=== PATIENT | male | born 1960 | race Caucasian/White ===

== ENCOUNTER 2017-07-12 08:24 | Inpatient (IN) | payer MEDICARE, SELFPAY ==
[2017-07-12] VITALS (8 sets, daily range): BP systolic 103–136; BP diastolic 76–94; PULSE 73–88; RESP 14–20; TEMP 36.2–36.6; O2SAT 97–100; BMI 26.8; BMI 25.7
--- NOTE | 2017-07-12 08:34 | EKG12_ITS ---
Test Reason : Blood Pressure : / mmHG Vent. Rate : 072 BPM Atrial Rate : 072 BPM P-R Int : 138 ms QRS Dur : 072 ms QT Int : 418 ms P-R-T Axes : 032 079 092 degrees QTc Int : 457 ms Normal sinus rhythm Normal ECG Confirmed by HONEY MCKEON MD ([id number]), desk editor KEEGAN MAURICIO ([id number] on 07/15/2017 2:51:27 PM Referred By: CHERYL Confirmed By:HONEY MCKEON MD
--- NOTE | 2017-07-12 08:35 | CT_ITS ---
STUDY: CT ABDOMEN AND PELVIS WITH CONTRAST REASON FOR EXAM: Male, 56 years old. Abdominal pain. History of gastric mass. RADIATION DOSAGE (If Supplied By Facility): CTDIvol = ( 30.55 ) mGy, DLP = ( 1003.56 ) mGycm TECHNIQUE: Transaxial images were obtained from the dome of the diaphragm to the symphysis pubis without oral contrast. 100ML ml of Isovue 370 contrast was administered. Sagittal and coronal images were reconstructed. Individualized dose optimization techniques were used for this CT. COMPARISON: None. FINDINGS: The visualized lung bases are unremarkable. The visualized portions of the heart are within normal limits. Normal liver. The patient is status post cholecystectomy. Normal spleen. Normal pancreas. Normal bilateral adrenal glands. Small right renal cysts. Normal left kidney. There is distention of the stomach with oral contrast and residual food particles. There are dilated loops of the small intestine with a non-distended colon consistent with a small bowel obstruction. The transition point is in the distal ileum. An anastomotic suture line is seen in the region of the cecum. Sigmoid diverticulosis. There is diffuse atherosclerotic calcification of the abdominal aorta, without a demonstrated aneurysm. Normal inferior vena cava. Normal retroperitoneum. Normal urinary bladder. There is evidence of prior lateral inguinal hernias repair as well as ventral hernia repair. There are diffuse degenerative changes of the visualized lumbar spine. CT/CT ANGIO ABD&PEL W/O&W/DYE IMPRESSION: Findings in keeping with small bowel obstruction. The transition point is in the distal ileum. Prior bilateral inguinal hernias repair. Electronically Signed: Jordon Olsen MD at 10:33 EST Tel [phone], Service support ,
--- NOTE | 2017-07-12 08:36 | RAD_ITS ---
STUDY: X-RAY CHEST REASON FOR EXAM: Male, 56 years old. Abdominal pain with nausea and vomiting. TECHNIQUE: AP and lateral views of the chest. COMPARISON: None. FINDINGS: EKG electrodes are seen. The lungs are clear and expanded. There is no demonstrated pleural abnormality. Normal size heart. Normal mediastinum and chaka. Normal visualized pulmonary arteries. There is atherosclerotic tortuosity of the aortic arch and descending thoracic aorta. There is demineralization of the osseous structures. Prior right shoulder replacement. There is no demonstrated abnormality of the visualized soft tissue structures of the upper abdomen. RAD/Chest PA and Lateral IMPRESSION: No acute abnormality is seen. Electronically Signed: Jordon Olsen MD at 10:10 EST Tel [phone], Service support ,
--- NOTE | 2017-07-12 08:46 | ED.DCSUM_ITS ---
- ER Visit Summary Date of Service: 07/12/17 Chief Complaint: Abdominal pain History of Present Illness: The patient is a 56 M who presents for abdominal pain onset last night after eating. he is complaining of severe sharp epigastric pain that is been constant since eating pizza rolls last night. He had associated nausea and vomiting. Denies fever but did have night sweats. No chest pain, shortness of breath, congestion or acute cough, urinary symptoms other than chronic incontinence,. Pain is nonradiating. Patient denies current alcohol use but is a former drinker. Current tobacco use. Medical history of COPD, incontinence, and prostate surgery. Physical Examination: Vital signs: afebrile, hemodynamically stable, no hypoxia on room air General: well nourished, well developed, appears uncomfortable, fidgety Skin: warm, dry, no rash, no pallor HEENT: normocephalic and atraumatic; PERRL, EOMI, moist mucous membranes Cardiovascular: regular rate and rhythm without murmurs, no peripheral edema, 2 + pulses all distal extremities Respiratory: No increased work of breathing, lungs are diffuse wheezing Abdominal: Abdomen is soft, mildly distended, tender in the epigastrium, no rebound tenderness, no guarding, no pulsatile masses, no rigidity MSK: Moves all extremities, no deformities, normal strength Neuro: Awake and alert, oriented ?4. No facial droop, sensation and motor function intact and symmetric Test Results: Abnormal Lab Results 07/12/17 07/12/17 07/12/17 08:30 08:30 08:30 WBC 19.5 H RBC 4.90 Hgb 14.8 Hct 43.6 MCV 89.0 MCH 30.2 MCHC 33.9 RDW 14.7 H RDW Differential 47.2 H Plt Count 501 H MPV 9.0 Immature Gran % (Auto) 0.300 Neut % (Auto) 84.9 H Lymph % (Auto) 11.4 L [place] % (Auto) 3.2 Eos % (Auto) 0.1 Baso % (Auto) 0.1 Absolute Neuts (auto) 16.6 H Absolute Lymphs (auto) 2.22 Total Counted Not Reportable ESR Sodium 142 Potassium 3.3 L Chloride 113 H Carbon Dioxide 17.0 L Anion Gap 12 BUN 8 Creatinine 1.01 Estim Creat Clear Calc 93.39 Est GFR (MDRD) Af Amer 98 Est GFR (MDRD) Non-Af 81 BUN/Creatinine Ratio 7.9 L Glucose 160 H Hemoglobin A1c 5.9 Lactic Acid Calcium 7.0 L Phosphorus Magnesium Total Bilirubin 0.40 AST 15 ALT 19 Alkaline Phosphatase 81 Troponin I < 0.02 C-React Prot Ext Range Total Protein 6.2 L Albumin 2.6 L Globulin 3.6 Albumin/Globulin Ratio 0.7 L Lipase 159 Urine Color Urine Clarity Urine pH Ur Specific [place] Urine Protein Urine Glucose (UA) Urine Ketones Urine Occult Blood Urine Nitrite Urine Bilirubin Urine Urobilinogen Ur Leukocyte Esterase Urine RBC Urine WBC Ur Squamous Epith Cells Urine Bacteria Urine Mucus 07/12/17 07/12/17 07/12/17 08:30 08:30 08:40 WBC RBC Hgb Hct MCV MCH MCHC RDW RDW Differential Plt Count MPV Immature Gran % (Auto) Neut % (Auto) Lymph % (Auto) [place] % (Auto) Eos % (Auto) Baso % (Auto) Absolute Neuts (auto) Absolute Lymphs (auto) Total Counted ESR 14 Sodium Potassium Chloride Carbon Dioxide Anion Gap BUN Creatinine Estim Creat Clear Calc Est GFR (MDRD) Af Amer Est GFR (MDRD) Non-Af BUN/Creatinine Ratio Glucose Hemoglobin A1c Lactic Acid 5.1 H* Calcium Phosphorus 3.9 Magnesium 1.7 Total Bilirubin AST ALT Alkaline Phosphatase Troponin I C-React Prot Ext Range 5.19 H Total Protein Albumin Globulin Albumin/Globulin Ratio Lipase Urine Color Urine Clarity Urine pH Ur Specific [place] Urine Protein Urine Glucose (UA) Urine Ketones Urine Occult Blood Urine Nitrite Urine Bilirubin Urine Urobilinogen Ur Leukocyte Esterase Urine RBC Urine WBC Ur Squamous Epith Cells Urine Bacteria Urine Mucus 07/12/17 07/12/17 08:40 13:00 WBC RBC Hgb Hct MCV MCH MCHC RDW RDW Differential Plt Count MPV Immature Gran % (Auto) Neut % (Auto) Lymph % (Auto) [place] % (Auto) Eos % (Auto) Baso % (Auto) Absolute Neuts (auto) Absolute Lymphs (auto) Total Counted ESR Sodium Potassium Chloride Carbon Dioxide Anion Gap BUN Creatinine Estim Creat Clear Calc Est GFR (MDRD) Af Amer Est GFR (MDRD) Non-Af BUN/Creatinine Ratio Glucose Hemoglobin A1c Lactic Acid 2.4 H Calcium Phosphorus Magnesium Total Bilirubin AST ALT Alkaline Phosphatase Troponin I C-React Prot Ext Range Total Protein Albumin Globulin Albumin/Globulin Ratio Lipase Urine Color Yellow Urine Clarity Sl. Cloudy Urine pH 7.0 Ur Specific [place] 1.010 Urine Protein 15 H Urine Glucose (UA) 50 H Urine Ketones 50 H Urine Occult Blood 10 H Urine Nitrite Positive H Urine Bilirubin Negative Urine Urobilinogen 4 H Ur Leukocyte Esterase 100 H Urine RBC 0 SEEN Urine WBC 5-10 SEEN Ur Squamous Epith Cells 0-5 SEEN Urine Bacteria RARE Urine Mucus 2+ Emergency Department Course and Treatment: Patient was given IV fluids, morphine and Zofran for symptomatic treatment. Given the epigastric location of his complaint, chest and abdominal workup were performed. EKG showed sinus rhythm without ischemia or ectopy. Chest x-ray showed no free air under the diaphragm. No pneumonia. Labs were concerning for leukocytosis of 19.5. Normal lipase. Lactate elevated at 5.1. Troponin negative. Patient is afebrile, heart rate normal, respiratory rate normal, and does not meet SIRS criteria, however with the elevated lactate and leukocytosis this is concerning for possible infectious etiology. Was started on Zosyn empirically. CTA of the abdomen and pelvis was performed to look for abdominal pathology, including possible mesenteric ischemia given the patient's pain was out of proportion to the relatively benign examination. CT was consistent with small bowel obstruction. Patient was discussed with Dr. Jaimes will consult on patient but inks medical management is appropriate at this time. An NG tube was placed given that patient has been having vomiting and has a large amount of stomach contents noted on CT scan. Patient required additional morphine for pain. Patient was discussed with Dr. Morin admitted for medical management of small bowel obstruction. Treatment Plan: [] Disposition: [] Impression: Small bowel obstruction, lactic acidosis This note was generated with [employer] dictation software. It may contain incorrect words, spelling, and punctuation that were not noted in review of the chart prior to signing ED Disposition - Plan for ED Patient: Disposition: Acute Care Hospital [facility] Chief Complaint: Abd Pain
[2017-07-12 08:53] LABS: Red Blood Cells-Urine 0 SEEN /hpf (0-5)
[2017-07-12 08:56] LABS: Color, Urine Yellow (Yellow); Glucose, Dipstick 50 mg/dl (Normal); Ketone-Dipstick 50 mg/dl (Negative); Leukocyte Esterase-Dipstick 100 /ul (Negative); Nitrite-Dipstick Positive (Negative); Occult Blood-Urine 10 /ul (Negative); Protein-Dipstick 15 mg/dl (Negative); Urine Bilirubin Dipstick Negative (Negative); Urine Clarity Sl. Cloudy (Clear); Urine Urobilinogen 4 mg/dl (Normal)
[2017-07-12 08:57] LABS: Absolute Lymphocyte Count 2.22 X10^3/ul (0.83-4.51); Absolute Neutrophil Count 16.6 X10^3/uL (2.0-7.7); Basophil# 0.02 X10^3/uL; Basophil% 0.1 % (0-1); Eosinophil# 0.02 X10^3/uL; Eosinophils% 0.1 % (0-5); Hematocrit 43.6 % (40-54); Hemoglobin 14.8 g/dl (13.0-16.5); Lymphocyte # 2.22 X10^3/ul (4.0); Lymphocyte % 11.4 % (19-41); Mean Corp Hgb Conc 33.9 g/gl (32-36); Mean Corpuscular Hgb 30.2 pg (27.0-32.0); Monocyte# 0.63 X10^3/uL; Monocyte% 3.2 % (0-10); Neutrophil # 16.59 X10^3/uL (2.7-7.7); Neutrophil % 84.9 % (47-70); Platelet Count 501 K/mm3 (150-450); RBC Distribution Width CV 14.7 % (11.6-14.6); RBC Distribution Width SD 47.2 fl (35.1-43.9); White Blood Count 19.5 K/mm3 (4.4-11.0)
[2017-07-12] MEDS: Ondansetron 4 MG/2 ML Vial IV (08:57)
[2017-07-12] MEDS: 0.9% Normal Saline 1,000 ML 1000 ML IV (08:57)
[2017-07-12 08:59] LABS: POSITIVE COUNT NO; POSITIVE DIFFERENTIAL NO; POSITIVE MORPHOLOGY NO
[2017-07-12 09:02] LABS: Mucous, Urine 2+ /hpf (<or=2+); Squamous Epithelial Cells - UA 0-5 SEEN /hpf (0-5); White Blood Cells 5-10 SEEN /hpf (0-5)
[2017-07-12 09:03] LABS: Bacteria RARE /hpf (None Seen)
[2017-07-12 09:10] LABS: ALB/GLOB Ratio 0.7 RATIO (0.9-2.4); AST(SGOT) 15 U/L (15-37); Alanine Aminotransfer ALT/SGPT 19 U/L (16-61); Albumin, Serum 2.6 g/dL (3.2-5.0); Alkaline Phosphatase 81 U/L (45-117); Anion Gap 12 (5-15); BUN 8 mg/dL (7-18); BUN/Creat Ratio 7.9 RATIO (10-20); Chloride 113 mmol/L (98-107); Creatinine, Serum 1.01 mg/dL (0.70-1.30); EST Glomerular Filtration Rate 81 mL/min (>60); Est Glom Filt Rate - Afr Amer 98 mL/min (>60); Estimated Creatinine Clearance 93.39 ml/min; Globulin 3.6 g/dL (2.2-4.2); Glucose 160 mg/dL (74-106); Lipase 159 U/L (73-393); Potassium 3.3 mmol/L (3.5-5.1); Protein, Total 6.2 g/dL (6.4-8.2); Sodium Level 142 mmol/L (136-145)
[2017-07-12 09:22] LABS: Lactic Acid 5.1 mmol/L (0.4-2.0)
[2017-07-12] MEDS: 0.9% Normal Saline 1,000 ML 999 ML IV ×2 (10:07→14:35)
--- NOTE | 2017-07-12 10:17 | ED.RN ---
BLOOD CX X2 DRAWN BEFORE ATB INITIATED
--- NOTE | 2017-07-12 10:52 | RAD_ITS ---
STUDY: X-RAY - ABDOMEN/PELVIS REASON FOR EXAM: Male, 56 years old. Nasogastric tube placement. TECHNIQUE: AP supine and upright views of the abdomen and pelvis. COMPARISON: None. FINDINGS: Elevation of the right hemidiaphragm. The tip of the nasogastric tube is at the gastroesophageal junction. There are dilated loops of the small intestine with a non-distended colon consistent with a small bowel obstruction. There is no demonstrated free abdominal air. The visualized liver, spleen and kidneys are grossly normal in size and morphology. Normal soft tissue structures. Normal visualized osseous structures. RAD/Abdomen Single View (Portable) IMPRESSION: The tip of the nasogastric tube is at the level of the gastroesophageal junction. Electronically Signed: Jordon Olsen MD at 11:37 EST Tel [phone], Service support ,
--- NOTE | 2017-07-12 11:10 | RAD_ITS ---
STUDY: X-RAY CHEST REASON FOR EXAM: Male, 56 years old. Nausea and vomiting. Nasogastric tube placement. TECHNIQUE: Single AP portable view of the chest. COMPARISON: Comparison is made with prior examination done earlier in the day. FINDINGS: A nasogastric tube is seen. The tip is at the level of the gastroesophageal junction. The lungs are clear and expanded. There is no demonstrated pleural abnormality. Normal size heart. Normal mediastinum and chaka. Normal visualized pulmonary arteries. There is atherosclerotic tortuosity of the aortic arch and descending thoracic aorta. Normal visualized thoracic spine. Prior right shoulder replacement. There is no demonstrated abnormality of the visualized soft tissue structures of the upper abdomen. RAD/Chest 1 View (Portable) IMPRESSION: The tip of the nasogastric tube is at the level of the gastroesophageal junction. Electronically Signed: Jordon Olsen MD at 11:34 EST Tel [phone], Service support ,
--- NOTE | 2017-07-12 11:32 | RAD_ITS ---
STUDY: X-RAY - ABDOMEN/PELVIS REASON FOR EXAM: Male, 56 years old. Small bowel obstruction. Nasogastric tube placement. TECHNIQUE: Single AP view of the abdomen / pelvis. COMPARISON: Comparison is made with prior examination on earlier today. FINDINGS: The tip of the nasogastric tube is in the body of the stomach. RAD/Abdomen Single View (Portable) IMPRESSION: The tip of the nasogastric tube is in the body of the stomach. Electronically Signed: Jordon Olsen MD at 12:22 EST Tel [phone], Service support ,
[2017-07-12 12:52] LABS: Reflex Lactate? Y
--- NOTE | 2017-07-12 12:53 | NURSING ---
texted Dr. Morin to inform her that pt is here in 213 and there are no orders. No orders for NG to suction.
--- NOTE | 2017-07-12 13:12 | NURSING ---
Dr. Morin aware pt is here and will be up shortly.
--- NOTE | 2017-07-12 13:53 | PCM.HP.STD ---
Problem List (1) SBO (small bowel obstruction) Status: Acute (2) Depression Status: Chronic (3) Hx of malignant neoplasm of prostate Status: Chronic Comment: stage III diagnosed in 2014 and treated with Radiation and prostatectomy (4) Lactic acidosis Status: Acute (5) Hypokalemia Status: Acute (6) Hypocalcemia Status: Acute (7) HLD (hyperlipidemia) Status: Chronic (8) Tobacco dependence due to cigarettes Status: Chronic Comment: 1 and 1/2 PPD (9) GERD (gastroesophageal reflux disease) Status: Chronic (10) Inflammatory arthritis Status: Chronic Comment: takes MTX and it is managed by PCP (11) ischemic heart disease Status: Acute Comment: father with MO at 68 brother also has CVD History of Present Illness Date of Admission: 07/12/17 Chief Complaint: N/V/abdominal pain The patient is a 56 year old M with a hx of stage III prostatic CA, HLD, depression/anxiety, tobacco dependence, inflammatory arthritis treated by his PCP with methotrexate, GERD and asthma as a child who presented to the ER at [facility] on 07/12/17 c/o N/V/Abdominal pain and distension that started last night after eating pizza rolls. He has never had a problem with this food in the past. He has no sick contacts. He does have a hx of multiple abdominal/pelvic surgeries that include cholecystectomy, partial colon resection for a large mass which was benign in 2013, appendectomy, prostatectomy, 2 inguinal hernia repairs. He denies fever, chills, night sweats. Additionally has had surgery on both wrists and both shoulders. Vital signs at presentation to the emergency room are temperature 97.6, pulse rate 75, blood pressure 129/92, respiratory rate 18 and he was 100% saturated on room air. Remarkable lab included an elevated white blood cell count at 19.5 with 85% neutrophils. Platelet count was 501,000. Potassium was low at 3.3 and the serum bicarb was 17 with an anion gap of 12. Random blood glucose is elevated at 160 and the patient denies any history of diabetes mellitus. Calcium is 7.0 and the serum albumin is 2.6. LFTs were within normal limits. UA was positive for ketones and glucose. Were 5-10 white blood cells and 0-5 squamous epithelial cells in the urine with rare bacteria. Patient does have a chronic problem with urinary incontinence since prostatectomy and wears a depends. He is being admitted to the hospital with a diagnosis of small bowel obstruction. Dr. Jaimes has been notified of consult. NG tube has been placed and was verified with a KUB. The NG tube is now to low intermittent suction and immediately had 500 cc of green/bilious return. The Lactic acid is in excess of 5.1 but he only meets 1 SIRS criteria and he is afebrile with a normal HR and BP. He is alert and oriented X3 and does not appear Toxic. He is being admitted to a [facility] floor. Past Medical History Past Medical History (Chronic Problems): Chronic Problems Depression (Chronic) Hx of malignant neoplasm of prostate (Chronic) stage III diagnosed in 2013 and treated with Radiation and prostatectomy HLD (hyperlipidemia) (Chronic) Tobacco dependence due to cigarettes (Chronic) 1 and 1/2 PPD GERD (gastroesophageal reflux disease) (Chronic) Inflammatory arthritis (Chronic) takes MTX and it is managed by PCP Allergies acetaminophen [From Vicodin] Allergy (Verified 07/12/17 12:34) Vomiting hydrocodone [From Vicodin] Allergy (Verified 07/12/17 12:34) Vomiting Home Medications: Ambulatory Orders Medication Instructions Recorded Buspirone HCl 7.5 mg PO TID 07/12/17 Cholecalciferol (Vitamin D3) 5,000 unit PO DAILY 07/12/17 [Vitamin D3] Citalopram Hydrobromide 40 mg PO DAILY 07/12/17 [Citalopram HBr] Cyanocobalamin (Vitamin B-12) 2,500 mcg SL DAILY 07/12/17 [Vitamin B-12] Meloxicam [Mobic] 15 mg PO DAILY 07/12/17 Mirtazapine [Remeron] 45 mg PO QHS 07/12/17 Russell-3 Acid Ethyl Esters [Lovaza] 1 gm PO BID 07/12/17 Pantoprazole Sodium [Protonix] 40 mg PO DAILY 07/12/17 Pedi Multivit 158/Iron/Vit K1 1 each PO DAILY 07/12/17 [Cerovite Jr Tablet Chew] Potassium Chloride 10 meq PO BID 07/12/17 Surgical History: appendectomy, cholecystectomy, herniorrhaphy - 2 inguinal herniorrhaphys L inguingal, - - partial colon resection for a large benign mass, BL shoulder surgeries, prostatectomy Psychiatric History: Anxiety, Depression Lives: Spouse/ Significant Other Smoking Status: Current every day smoker Tobacco Use: Cigarettes - 1 and 1/2 PPD Alcohol: Occasional Drugs: None - *Family History Maternal History Items: Cancer - Mother at the age of 64 of lung cancer Paternal History Items: Heart Disease - Father at 68 with an myocardial infarction Sibling History Items: Heart Disease - He has a brother with heart disease. Review of Systems Constitutional: Denies: Chills, Fever, Night Sweats, Weakness HEENT: Denies: Head Aches, Sinus Congestion, Sinus Drainage Cardiovascular: Denies: Chest Pain, Palpitations Respiratory: Denies: Cough, Shortness of Breath, Shortness of breath at rest, Sputum production Gastrointestinal: Reports: Abdominal Pain - diffuse, Nausea, Vomiting. Denies: Diarrhea, Hematemesis Genitourinary: Reports: Incontinence - he has had this since prostatectomy and wears a depends. Denies: Dysuria Musculoskeletal: Denies: Joint Pain, Joint Tenderness Skin: Denies: Jaundice, Wounds Neurological: Denies: Numbness, Tingling, Focal weakness Psychiatric: Reports: Anxiety, Depression. Denies: Homicidal Ideations, Suicidal Ideations Endocrine: Denies: Change in Body Habitus Hematologic/ Lymphatic: Denies: Hx of blood clot VTE Information - Inpt Only VTE Present on Admission: No VTE Mechan Device Prophylaxis: Knee High HAKAN Hose VTE Pharm Prophylaxis ordered?: Yes Patient Problems: Active and Suspected Problems SBO (small bowel obstruction) (Acute) Lactic acidosis (Acute) Hypokalemia (Acute) Hypocalcemia (Acute) FH ischemic heart disease (Acute) father with MO at 68 brother also has CVD - Physical Exam General: Alert, Oriented x3, Cooperative, No apparent distress, Well developed, Well nourished HEENT: Atraumatic, PERRLA, EOMI Oral: Dry Mucosa Neck: Supple, No JVD, Negative Carotid Bruits, - - Carotid upstrokes are brisk with good pulse volume Lungs: Clear to auscultation, No rhonchi, No wheeze, No rales Cardiovascular: Regular rate, Regular Rhythm, Normal S1, Normal S2, No murmurs, No Ectopic Activity, No rub noted, No Gallop Abdomen: Soft, Non Tender - at present but has had morphine, Hypoactive Bowel Sounds, Distended - and tympanic Extremities: No clubbing, No cyanosis, No edema, No Calf Tenderness Skin: No rashes, No breakdown Musculoskeletal: Arthritic Changes Neurological: Cranial nerves II-XII grossly intact, Neuro grossly intact Psych/Mental Status: Normal Affect, Appropriate Vital Signs Temp Pulse Resp BP Pulse Ox 97.9 F 87 18 118/76 98 07/12/17 12:54 07/12/17 12:54 07/12/17 12:54 07/12/17 12:54 07/12/17 12:54 Oxygen Delivery Method Room Air Weight: 195 lb Body Mass Index (BMI) 25.7 Laboratory Tests Past 24 Hrs 07/12/17 13:00 Lactic Acid Pending Assessment/Plan Active and Suspected Problems SBO (small bowel obstruction) (Acute) Lactic acidosis (Acute) Hypokalemia (Acute) Hypocalcemia (Acute) FH ischemic heart disease (Acute) father with MO at 68 brother also has CVD impressions 1. SBO - suspect adhesions 2. lactic acidosis due to dehydration/N/V - only has 1/4 SIRS criteria and although his WBC count is increased no obvious infection a this point 3. hx of age 4 prostate cancer diagnosed in 2013 and treated with prostatectomy and external beam radiation 4. GERD 5. History of hypertension 6. Hyperlipidemia 7. History of partial colon resection for a large benign mass 8. Nicotine dependence 9. Hypokalemia 10. Hypocalcemia 11. urinary incontinence since prostatectomy Admitted to [facility] with a diagnosis of SBO. Continue the Zosyn for now Consult Dr. Jaimes Maintain the NG to low intermittent suction, encouraged ambulation Supplement the potassium and the calcium Check BMP, mag and phos at 1700 Recheck the lab in the AM Hakan bonilla and Sonal for DVT prophylaxis Blood and urine cultures pending Code Visit Inpatient E&M: 91684 Init Hosp L2
[2017-07-12 13:55] LABS: Lactic Acid 2.4 mmol/L (0.4-2.0)
[2017-07-12] MEDS: 0.9% NaCl Peripheral Flush Adult/Peds IV (14:19)
[2017-07-12 14:35] LABS: Erythrocyte Sedimentation Rate 14 mm/hr (0-20)
--- NOTE | 2017-07-12 14:40 | PCM.CONS.GEN ---
Reason for Consult Date of Consultation: 07/12/17 History of Present Illness: The patient is a 56 year old M who presents with a one-day history of abdominal distention, nausea and vomiting. The patient was in usual state of health when yesterday noted significant abdominal distention. He had upper abdominal pain followed by nausea and vomiting. He presented to [facility] emergency department. He was found to have an elevated white blood cell count of 19,000. His initial elevated lactic acid level of 5.2. CT scan of the abdomen and pelvis demonstrated a distal high-grade small bowel obstruction with what appears to be a transition point in the low right pelvis. The patient actually is feeling better after IV fluid bolus and nasogastric tube insertion area. Patient has a history of prostate cancer, underwent a radical retropubic robotic prostatectomy and [facility] is also note of an umbilical hernia repair in September 2015. Past Medical History Past Medical History (Chronic Problems): Chronic Problems Depression (Chronic) Hx of malignant neoplasm of prostate (Chronic) stage III diagnosed in 2013 and treated with Radiation and prostatectomy HLD (hyperlipidemia) (Chronic) Tobacco dependence due to cigarettes (Chronic) 1 and 1/2 PPD GERD (gastroesophageal reflux disease) (Chronic) Inflammatory arthritis (Chronic) takes MTX and it is managed by PCP Allergies acetaminophen [From Vicodin] Allergy (Verified 07/12/17 12:34) Vomiting hydrocodone [From Vicodin] Allergy (Verified 07/12/17 12:34) Vomiting Home Medications: Ambulatory Orders Medication Instructions Recorded Buspirone HCl 7.5 mg PO TID 07/12/17 Cholecalciferol (Vitamin D3) 5,000 unit PO DAILY 07/12/17 [Vitamin D3] Citalopram Hydrobromide 40 mg PO DAILY 07/12/17 [Citalopram HBr] Cyanocobalamin (Vitamin B-12) 2,500 mcg SL DAILY 07/12/17 [Vitamin B-12] Meloxicam [Mobic] 15 mg PO DAILY 07/12/17 Mirtazapine [Remeron] 45 mg PO QHS 07/12/17 [place]-3 Acid Ethyl Esters [Lovaza] 1 gm PO BID 07/12/17 Pantoprazole Sodium [Protonix] 40 mg PO DAILY 07/12/17 Pedi Multivit 158/Iron/Vit K1 1 each PO DAILY 07/12/17 [Cerovite Jr Tablet Chew] Potassium Chloride 10 meq PO BID 07/12/17 Surgical History: appendectomy, cholecystectomy, - - 02/17/14 underwent robotic retropubic radical prostatectomy with pelvic lymph node dissection - [facility] Smoking Status: Current every day smoker - *Family History Maternal History Items: Cancer - Mother at the age of 64 of lung cancer Paternal History Items: Heart Disease - Father at 68 with an myocardial infarction Sibling History Items: Heart Disease - He has a brother with heart disease. Review of Systems Constitutional: Reports: Malaise HEENT: Denies: Head Aches, Sinus Congestion, Sinus Drainage Cardiovascular: Denies: Chest Pain, Palpitations Respiratory: Denies: Cough, Shortness of breath at rest, Sputum production Gastrointestinal: Reports: Abdominal Pain, Nausea, Vomiting Genitourinary: Denies: Dysuria Musculoskeletal: Reports: Arm Pain, Hand Pain, Joint stiffness. Denies: Joint Pain, Joint Tenderness Skin: Denies: Rash, Wounds Neurological: Denies: Numbness, Tingling, Focal weakness Psychiatric: Denies: Anxiety, Depression, Homicidal Ideations, Suicidal Ideations Hematologic/ Lymphatic: Denies: Easy Bruising, Easy Bleeding Patient Problems: Active and Suspected Problems SBO (small bowel obstruction) (Acute) Lactic acidosis (Acute) Hypokalemia (Acute) Hypocalcemia (Acute) FH ischemic heart disease (Acute) father with [place] at 68 brother also has CVD - Physical Exam General: Alert, Oriented x3, Cooperative Lungs: Normal air movement, Wheezes Cardiovascular: Regular rate, Regular Rhythm Abdomen: Bowel Sounds Present, Soft, Non Tender, Distended - mildly distended-no palpable hernias Vital Signs Temp Pulse Resp BP Pulse Ox 97.9 F 87 18 118/76 98 07/12/17 12:54 07/12/17 12:54 07/12/17 12:54 07/12/17 12:54 07/12/17 13:47 Oxygen Delivery Method Room Air Weight: 88.451 kg Body Mass Index (BMI) 25.7 Intake and Output for Last 24 Hours 07/10/17 07/11/17 07/12/17 23:59 23:59 23:59 Intake Total Balance Laboratory Tests Past 24 Hrs 07/12/17 13:00 Lactic Acid 2.4 H Assessment/Plan Active and Suspected Problems SBO (small bowel obstruction) (Acute) Lactic acidosis (Acute) Hypokalemia (Acute) Hypocalcemia (Acute) FH ischemic heart disease (Acute) father with [place] at 68 brother also has CVD small bowel obstruction, history of radical prostatectomy in [address] scan demonstrates a transition point with what appears to eventual matter in the lower right pelvis. There are no obvious hernias noted in the pelvic area. There is a question of a recurrent hernia just left of midline at the umbilicus, but there is no signs of transition or bowel incarceration that location. Clinically, the patient is doing well after hydration and NG tube placement. Repeat lactic acid level has improved significantly. Discussed with the patient that with nasogastric decompression, bowel rest and IV hydration. Approximately 60 -70% of bowel obstructions resolve. We will plan to follow the patient clinically and with serial abdominal series KUB demonstrates the tip of the NG tube to be in the stomach but the most proximal opening was still in the esophagitis. I asked the nurse to advance the NG tube proximally 5 cm did not feel another x-ray to be obtained right away. We will plan for obstructive series in the morning.
[2017-07-12 14:41] LABS: CRP 5.19 mg/L (0.0-3.0); Magnesium 1.7 mg/dL (1.6-2.6); Phosphorus 3.9 mg/dL (2.5-4.9)
--- NOTE | 2017-07-12 14:45 | CON.PCM_ITS ---
Reason for Consult Date of Consultation: 07/12/17 History of Present Illness: The patient is a 56 year old M who presents with a one-day history of abdominal distention, nausea and vomiting. The patient was in usual state of health when yesterday noted significant abdominal distention. He had upper abdominal pain followed by nausea and vomiting. He presented to [facility] emergency department. He was found to have an elevated white blood cell count of 19,000. His initial elevated lactic acid level of 5.2. CT scan of the abdomen and pelvis demonstrated a distal high-grade small bowel obstruction with what appears to be a transition point in the low right pelvis. The patient actually is feeling better after IV fluid bolus and nasogastric tube insertion area. Patient has a history of prostate cancer, underwent a radical retropubic robotic prostatectomy and [facility] is also note of an umbilical hernia repair in September 2015. Past Medical History Past Medical History (Chronic Problems): Chronic Problems Depression (Chronic) Hx of malignant neoplasm of prostate (Chronic) stage III diagnosed in 2013 and treated with Radiation and prostatectomy HLD (hyperlipidemia) (Chronic) Tobacco dependence due to cigarettes (Chronic) 1 and 1/2 PPD GERD (gastroesophageal reflux disease) (Chronic) Inflammatory arthritis (Chronic) takes MTX and it is managed by PCP Allergies acetaminophen [From Vicodin] Allergy (Verified 07/12/17 12:34) Vomiting hydrocodone [From Vicodin] Allergy (Verified 07/12/17 12:34) Vomiting Home Medications: Ambulatory Orders Medication Instructions Recorded Buspirone HCl 7.5 mg PO TID 07/12/17 Cholecalciferol (Vitamin D3) 5,000 unit PO DAILY 07/12/17 [Vitamin D3] Citalopram Hydrobromide 40 mg PO DAILY 07/12/17 [Citalopram HBr] Cyanocobalamin (Vitamin B-12) 2,500 mcg SL DAILY 07/12/17 [Vitamin B-12] Meloxicam [Mobic] 15 mg PO DAILY 07/12/17 Mirtazapine [Remeron] 45 mg PO QHS 07/12/17 [place]-3 Acid Ethyl Esters [Lovaza] 1 gm PO BID 07/12/17 Pantoprazole Sodium [Protonix] 40 mg PO DAILY 07/12/17 Pedi Multivit 158/Iron/Vit K1 1 each PO DAILY 07/12/17 [Cerovite Jr Tablet Chew] Potassium Chloride 10 meq PO BID 07/12/17 Surgical History: appendectomy, cholecystectomy, - - 02/17/14 underwent robotic retropubic radical prostatectomy with pelvic lymph node dissection - [facility] Smoking Status: Current every day smoker - *Family History Maternal History Items: Cancer - Mother at the age of 64 of lung cancer Paternal History Items: Heart Disease - Father at 68 with an myocardial infarction Sibling History Items: Heart Disease - He has a brother with heart disease. Review of Systems Constitutional: Reports: Malaise HEENT: Denies: Head Aches, Sinus Congestion, Sinus Drainage Cardiovascular: Denies: Chest Pain, Palpitations Respiratory: Denies: Cough, Shortness of breath at rest, Sputum production Gastrointestinal: Reports: Abdominal Pain, Nausea, Vomiting Genitourinary: Denies: Dysuria Musculoskeletal: Reports: Arm Pain, Hand Pain, Joint stiffness. Denies: Joint Pain, Joint Tenderness Skin: Denies: Rash, Wounds Neurological: Denies: Numbness, Tingling, Focal weakness Psychiatric: Denies: Anxiety, Depression, Homicidal Ideations, Suicidal Ideations Hematologic/ Lymphatic: Denies: Easy Bruising, Easy Bleeding Patient Problems: Active and Suspected Problems SBO (small bowel obstruction) (Acute) Lactic acidosis (Acute) Hypokalemia (Acute) Hypocalcemia (Acute) FH ischemic heart disease (Acute) father with [place] at 68 brother also has CVD - Physical Exam General: Alert, Oriented x3, Cooperative Lungs: Normal air movement, Wheezes Cardiovascular: Regular rate, Regular Rhythm Abdomen: Bowel Sounds Present, Soft, Non Tender, Distended - mildly distended- no palpable hernias Vital Signs Temp Pulse Resp BP Pulse Ox 97.9 F 87 18 118/76 98 07/12/17 12:54 07/12/17 12:54 07/12/17 12:54 07/12/17 12:54 07/12/17 13:47 Oxygen Delivery Method Room Air Weight: 88.451 kg Body Mass Index (BMI) 25.7 Intake and Output for Last 24 Hours 07/10/17 07/11/17 07/12/17 23:59 23:59 23:59 Intake Total Balance Laboratory Tests Past 24 Hrs 07/12/17 13:00 Lactic Acid 2.4 H Assessment/Plan Active and Suspected Problems SBO (small bowel obstruction) (Acute) Lactic acidosis (Acute) Hypokalemia (Acute) Hypocalcemia (Acute) FH ischemic heart disease (Acute) father with [place] at 68 brother also has CVD small bowel obstruction, history of radical prostatectomy in [address] scan demonstrates a transition point with what appears to eventual matter in the lower right pelvis. There are no obvious hernias noted in the pelvic area. There is a question of a recurrent hernia just left of midline at the umbilicus, but there is no signs of transition or bowel incarceration that location. Clinically, the patient is doing well after hydration and NG tube placement. Repeat lactic acid level has improved significantly. Discussed with the patient that with nasogastric decompression, bowel rest and IV hydration. Approximately 60 -70% of bowel obstructions resolve. We will plan to follow the patient clinically and with serial abdominal series KUB demonstrates the tip of the NG tube to be in the stomach but the most proximal opening was still in the esophagitis. I asked the nurse to advance the NG tube proximally 5 cm did not feel another x-ray to be obtained right away. We will plan for obstructive series in the morning.
[2017-07-12 15:11] LABS: Hemoglobin A1c 5.9 % (4.2-6.3)
--- NOTE | 2017-07-12 15:18 | NURSING ---
DR. LA CALLED, SPOKE WITH THIS NURSE. ORDERS TO ADVANCE NG TUBE 5CM AND NO NEED TO FOLLOW UP WITH XRAY AFTERWARDS PER POLICY PER DR. LA.
[2017-07-12 17:58] LABS: Lactic Acid 1.5 mmol/L (0.4-2.0)
[2017-07-12 18:16] LABS: Anion Gap 6 (5-15); BUN 8 mg/dL (7-18); BUN/Creat Ratio 7.6 RATIO (10-20); Chloride 109 mmol/L (98-107); Creatinine, Serum 1.05 mg/dL (0.70-1.30); EST Glomerular Filtration Rate 78 mL/min (>60); Est Glom Filt Rate - Afr Amer 94 mL/min (>60); Estimated Creatinine Clearance 89.83 ml/min; Glucose 91 mg/dL (74-106); Magnesium 1.7 mg/dL (1.6-2.6); Potassium 4.2 mmol/L (3.5-5.1); Sodium Level 140 mmol/L (136-145)
[2017-07-12] MEDS: Piperacil/Tazobactam 3.375 GM/50 ML ML IV (23:32)
[2017-07-13 02:00] VITALS: O2SAT 95
[2017-07-13 02:30] VITALS: BP 131/74; PULSE 68; RESP 18; TEMP 36.6; O2SAT 95
--- NOTE | 2017-07-13 06:00 | RAD_ITS ---
STUDY: X-RAY - ABDOMEN/PELVIS REASON FOR EXAM: Male, 56 years old. Small bowel obstruction TECHNIQUE: AP supine and upright views of the abdomen and pelvis. COMPARISON: 07/12/2017. FINDINGS: Normal visualized lung bases. There are dilated loops of the small intestine with a non-distended colon consistent with a small bowel obstruction. There is no demonstrated free abdominal air. NG tube tip is in the stomach. The visualized liver, spleen and kidneys are grossly normal in size and morphology. Normal soft tissue structures. Normal visualized osseous structures. RAD/Abd Inc Decub and/or Erect IMPRESSION: Small bowel obstruction. No free air. NG tube tip in the stomach. Electronically Signed: Andrew العراقي DO at 6:42 EST , Service support ,
[2017-07-13] MEDS: 0.9% NaCl Peripheral Flush Adult/Peds IV ×3 (06:18→19:56)
[2017-07-13] MEDS: Piperacil/Tazobactam 3.375 GM/50 ML ML IV ×3 (06:19→21:37)
[2017-07-13 07:09] LABS: Absolute Lymphocyte Count 2.01 X10^3/ul (0.83-4.51); Absolute Neutrophil Count 6.2 X10^3/uL (2.0-7.7); Basophil# 0.02 X10^3/uL; Basophil% 0.2 % (0-1); Eosinophil# 0.26 X10^3/uL; Eosinophils% 2.9 % (0-5); Hematocrit 38.9 % (40-54); Hemoglobin 12.7 g/dl (13.0-16.5); Lymphocyte # 2.01 X10^3/ul (4.0); Lymphocyte % 22.1 % (19-41); Mean Corp Hgb Conc 32.6 g/gl (32-36); Mean Corpuscular Hgb 29.5 pg (27.0-32.0); Mean Corpuscular Volume 90.5 fL (80-94); Mean Platelet Vol. 8.8 fl (6.2-12.0); Monocyte# 0.61 X10^3/uL; Monocyte% 6.7 % (0-10); Neutrophil # 6.19 X10^3/uL (2.7-7.7); Neutrophil % 67.9 % (47-70); Platelet Count 387 K/mm3 (150-450); RBC Distribution Width CV 15.2 % (11.6-14.6); RBC Distribution Width SD 49.8 fl (35.1-43.9); White Blood Count 9.1 K/mm3 (4.4-11.0)
[2017-07-13 07:11] LABS: POSITIVE COUNT NO; POSITIVE DIFFERENTIAL NO; POSITIVE MORPHOLOGY NO
[2017-07-13 07:30] LABS: Anion Gap 8 (5-15); BUN 8 mg/dL (7-18); BUN/Creat Ratio 8.2 RATIO (10-20); Calcium,Total 8.1 mg/dL (8.5-10.1); Chloride 104 mmol/L (98-107); Creatinine, Serum 0.98 mg/dL (0.70-1.30); EST Glomerular Filtration Rate 85 mL/min (>60); Est Glom Filt Rate - Afr Amer 102 mL/min (>60); Estimated Creatinine Clearance 96.25 ml/min; Glucose 102 mg/dL (74-106); Lactic Acid 1.3 mmol/L (0.4-2.0); Magnesium 1.6 mg/dL (1.6-2.6); Potassium 3.8 mmol/L (3.5-5.1); Sodium Level 138 mmol/L (136-145)
[2017-07-13 08:04] VITALS: BP 114/86; PULSE 71; RESP 16; TEMP 36.8; O2SAT 94
--- NOTE | 2017-07-13 08:47 | PCM.PN.SRG ---
Patient Problems: Active and Suspected Problems SBO (small bowel obstruction) (Acute) Lactic acidosis (Acute) Hypokalemia (Acute) Hypocalcemia (Acute) FH ischemic heart disease (Acute) father with [place] at 68 brother also has CVD Subjective: feeling better, no flatus - Physical Exam General: Alert, Oriented x3 Lungs: Clear to auscultation, Normal air movement Cardiovascular: Regular rate, Regular Rhythm Abdomen: Bowel Sounds Present, Soft, Non Tender, Distended Vital Signs Temp Pulse Resp BP Pulse Ox 98.2 F 71 16 114/86 H 94 07/13/17 08:04 07/13/17 08:04 07/13/17 08:04 07/13/17 08:04 07/13/17 08:04 Oxygen Delivery Method Room Air Weight: 88.451 kg Body Mass Index (BMI) 25.7 Intake and Output for Last 24 Hours 07/11/17 07/12/17 07/13/17 23:59 23:59 23:59 Intake Total 1592 / 1592 1906 / 1906 Output Total 700 / 700 1250 / 1250 Balance 892 / 892 656 / 656 Laboratory Tests Past 24 Hrs 07/12/17 07/12/17 07/12/17 13:00 17:26 17:26 WBC RBC Hgb Hct MCV MCH MCHC RDW RDW Differential Plt Count MPV Immature Gran % (Auto) Neut % (Auto) Lymph % (Auto) [place] % (Auto) Eos % (Auto) Baso % (Auto) Absolute Neuts (auto) Absolute Lymphs (auto) Total Counted Sodium 140 Potassium 4.2 Chloride 109 H Carbon Dioxide 25.0 Anion Gap 6 BUN 8 Creatinine 1.05 Estim Creat Clear Calc 89.83 Est GFR (MDRD) Af Amer 94 Est GFR (MDRD) Non-Af 78 BUN/Creatinine Ratio 7.6 L Glucose 91 Lactic Acid 2.4 H 1.5 Calcium 8.0 L Phosphorus 4.0 Magnesium 1.7 07/13/17 07/13/17 07/13/17 06:50 06:50 06:50 WBC 9.1 RBC 4.30 L Hgb 12.7 L Hct 38.9 L MCV 90.5 MCH 29.5 MCHC 32.6 RDW 15.2 H RDW Differential 49.8 H Plt Count 387 MPV 8.8 Immature Gran % (Auto) 0.200 Neut % (Auto) 67.9 Lymph % (Auto) 22.1 [place] % (Auto) 6.7 Eos % (Auto) 2.9 Baso % (Auto) 0.2 Absolute Neuts (auto) 6.2 Absolute Lymphs (auto) 2.01 Total Counted Not Reportable Sodium 138 Potassium 3.8 Chloride 104 Carbon Dioxide 26.0 Anion Gap 8 BUN 8 Creatinine 0.98 Estim Creat Clear Calc 96.25 Est GFR (MDRD) Af Amer 102 Est GFR (MDRD) Non-Af 85 BUN/Creatinine Ratio 8.2 L Glucose 102 Lactic Acid 1.3 Calcium 8.1 L Phosphorus 3.0 Magnesium 1.6 Assessment/Plan Active and Suspected Problems SBO (small bowel obstruction) (Acute) Lactic acidosis (Acute) Hypokalemia (Acute) Hypocalcemia (Acute) FH ischemic heart disease (Acute) father with [place] at 68 brother also has CVD small bowel obstruction, history of radical prostatectomy in 2014, umbilical hernia repair with mesh in 2016. will tr4y to obtain old OR records to assess mesh size Review the CT scan demonstrates a transition point in the lower right pelvis. There are no obvious hernias noted in the pelvic area. There is a question of a recurrent hernia just left of midline at the umbilicus, but there is no signs of transition or bowel incarceration that location and it may be post surgical changes. abdominal multiview demonstrated continued SBO Clinically, the patient is doing well after hydration and NG tube placement. Repeat lactic acid and WBC count normal. Discussed with the patient that with nasogastric decompression, bowel rest and IV hydration. Approximately 60 -70% of bowel obstructions resolve. We will plan to follow the patient clinically and with serial abdominal series KUB demonstrates the tip of the NG tube in stomach.
--- NOTE | 2017-07-13 09:27 | PN_ITS ---
Patient Problems: Active and Suspected Problems SBO (small bowel obstruction) (Acute) Lactic acidosis (Acute) Hypokalemia (Acute) Hypocalcemia (Acute) FH ischemic heart disease (Acute) father with [facility] at 68 brother also has CVD Subjective: The patient abdominal distention is better. No abdominal pain. Had multiple abdominal surgeries including 2 times umbilical hernia surgery, last one with mesh repair in 2016. Patient also had robotic assisted radical prostatectomy 2013 for prostate cancer with bilateral inguinal lymphadenectomy. Discussed with Dr. Wheat and will try to get the medical record of previous surgery. CT and abdominal x-ray images reviewed with Dr. Wheat. Patient had no fever or chills. No tachycardia. No bowel movement for last 2 days. Did not pass flatus Vitals/I&O's: Vital Signs Temp Pulse Resp BP Pulse Ox 98.2 F 71 16 114/86 H 94 07/13/17 08:04 07/13/17 08:04 07/13/17 08:04 07/13/17 08:04 07/13/17 08:04 Oxygen Delivery Method Room Air Weight: 195 lb 0.017 oz Body Mass Index (BMI) 25.7 Intake and Output for Last 24 Hours 07/11/17 07/12/17 07/13/17 23:59 23:59 23:59 Intake Total 1592 / 1592 1906 / 1906 Output Total 700 / 700 1250 / 1250 Balance 892 / 892 656 / 656 General: Alert, Oriented x3, Cooperative HEENT: Atraumatic, PERRLA, EOMI, Normocephalic Neck: Supple, No JVD, Negative Carotid Bruits Lungs: Clear to auscultation, Normal air movement, No rhonchi, No wheeze, Diminished Cardiovascular: Regular rate, Regular Rhythm, Normal S1, Normal S2, No murmurs Abdomen: Bowel Sounds Present, Soft, Non Tender, Non-Distended, Hypoactive Bowel Sounds Extremities: No edema, Capillary Refill Less than 3 Seconds Skin: No rashes, No breakdown Musculoskeletal: No Tenderness to Palpation of Joints or Extremities Neurological: Cranial nerves II-XII grossly intact Psych/Mental Status: Normal Affect, Appropriate Laboratory Results 07/12/17 13:00: Lactic Acid 2.4 H 07/12/17 17:26: Sodium 140, Potassium 4.2, Chloride 109 H, Carbon Dioxide 25.0, Anion Gap 6, BUN 8, Creatinine 1.05, Estim Creat Clear Calc 89.83, Est GFR (MDRD ) Af Amer 94, Est GFR (MDRD) Non-Af 78, BUN/Creatinine Ratio 7.6 L, Glucose 91, Calcium 8.0 L, Phosphorus 4.0, Magnesium 1.7 07/12/17 17:26: Lactic Acid 1.5 07/13/17 06:50: WBC 9.1, RBC 4.30 L, Hgb 12.7 L, Hct 38.9 L, MCV 90.5, MCH 29.5 , MCHC 32.6, RDW 15.2 H, RDW Differential 49.8 H, Plt Count 387, MPV 8.8, Immature Gran % (Auto) 0.200, Neut % (Auto) 67.9, Lymph % (Auto) 22.1, [place] % ( Auto) 6.7, Eos % (Auto) 2.9, Baso % (Auto) 0.2, Absolute Neuts (auto) 6.2, Absolute Lymphs (auto) 2.01, Total Counted Not Reportable 07/13/17 06:50: Sodium 138, Potassium 3.8, Chloride 104, Carbon Dioxide 26.0, Anion Gap 8, BUN 8, Creatinine 0.98, Estim Creat Clear Calc 96.25, Est GFR (MDRD ) Af Amer 102, Est GFR (MDRD) Non-Af 85, BUN/Creatinine Ratio 8.2 L, Glucose 102 , Calcium 8.1 L, Phosphorus 3.0, Magnesium 1.6 07/13/17 06:50: Lactic Acid 1.3 Current Medications Enoxaparin Sodium (Lovenox) 40 mg SC DAILY@1000 HIRO Potassium Chloride/Sodium Chloride (Kcl 20meq In 0.45% Ns 1000ml) 1,000 mls @ 150 mls/hr IV .[id number] [facility] Last Admin: 07/12/17 23:34 Dose: 150 mls/hr Pantoprazole Sodium 40 mg/ (Sodium Chloride) 110 mls @ 330 mls/hr IV Q24 [facility] Last Admin: 07/12/17 14:19 Dose: 330 mls/hr Piperacillin Sod/Tazobactam Sod (Zosyn) 3.375 gm in 50 mls @ 12.5 mls/hr IV Q8 [facility] Last Admin: 07/13/17 06:19 Dose: 12.5 mls/hr Morphine Sulfate (Morphine) 4 mg IV Q3H PRN PRN PRN Reason: SEVERE PAIN ([id number]) Last Admin: 07/12/17 20:03 Dose: 4 mg Ondansetron HCl (Zofran) 4 mg IV Q6H PRN PRN PRN Reason: NAUSEA Sodium Chloride () 5 - 30 ml IV UD PRN PRN Reason: SALINE FLUSH Last Admin: 07/13/17 06:18 Dose: 20 ml Assessment/Plan Active and Suspected Problems SBO (small bowel obstruction) (Acute) Lactic acidosis (Acute) Hypokalemia (Acute) Hypocalcemia (Acute) FH ischemic heart disease (Acute) father with [place] at 68 brother also has CVD This is a 56-year-old gentleman with history of multiple abdominal surgeries including appendectomy, cholecystectomy, umbilical hernia repair twice last one with mesh repair, radical prostatectomy with external beam radiation admitted with small bowel obstruction. Discussed with Dr. Wheat. Shunt abdominal distention has improved with conservative management including NG tube suction, bowel rest and IV fluid. On review of CT images, it seems a transition point and there right lower pelvis. No obvious hernia in the pelvic area. Abdominal x-ray shows multiple gas fluid level suggestive of small bowel obstruction. 1. Small bowel obstruction most rarely due to adhesion from previous surgeries , with transition point at the right pelvis sidewall: Continue conservative management as mentioned above. Lactic acid is improving. WBC count normal. Continue NG tube suction and n.p.o. Dr. Wheat asked for previous medical record of previous surgeries. 2. lactic acidosis due to dehydration/N/V - only has 1/4 SIRS criteria and although his WBC count is increased no obvious infection a this point. Repeat lactic acid normal 3. hx of age 4 prostate cancer diagnosed in 2013 and treated with prostatectomy and external beam radiation 4. GERD 5. History of hypertension 6. Hyperlipidemia 7. History of partial colon resection for a large benign mass 8. Nicotine dependence 9. Hypokalemia: Replace and corrected repeat potassium was 2.8. 10. Hypocalcemia 11. urinary incontinence since prostatectomy Code Visit Inpatient E&M: 39198 Subs Hosp L3
[2017-07-13] MEDS: Enoxaparin 40 MG/0.4 ML Syringe SC (10:08)
[2017-07-13 13:57] VITALS: BP 124/83; PULSE 71; RESP 16; TEMP 36.8; O2SAT 98
[2017-07-13 20:00] VITALS: BP 122/77; PULSE 70; RESP 18; TEMP 36.6; O2SAT 98
[2017-07-14 03:00] VITALS: BP 117/73; PULSE 69; RESP 16; TEMP 36.8; O2SAT 98
[2017-07-14] MEDS: 0.9% NaCl Peripheral Flush Adult/Peds IV ×3 (03:39→21:16)
--- NOTE | 2017-07-14 05:00 | RAD_ITS ---
STUDY: X-RAY - ABDOMEN/PELVIS REASON FOR EXAM: Male, 56 years old. Small bowel obstruction TECHNIQUE: AP supine and upright views of the abdomen and pelvis. COMPARISON: 07/13/2017. FINDINGS: Normal visualized lung bases. There are dilated loops of the small intestine with a non-distended colon consistent with a small bowel obstruction. NG tube tip in stomach. There is no demonstrated free abdominal air. The visualized liver, spleen and kidneys are grossly normal in size and morphology. Normal soft tissue structures. Normal visualized osseous structures. RAD/Abd Inc Decub and/or Erect IMPRESSION: Small bowel obstruction. No significant change. NG tube in the stomach. Electronically Signed: Andrew العراقي DO at 6:26 EDT , Service support ,
[2017-07-14] MEDS: Piperacil/Tazobactam 3.375 GM/50 ML ML IV ×3 (05:44→21:16)
[2017-07-14 07:37] VITALS: BP 110/73; PULSE 62; RESP 16; TEMP 36.5; O2SAT 94
--- NOTE | 2017-07-14 10:21 | PCM.PN.HOSP ---
Patient Problems: Active and Suspected Problems SBO (small bowel obstruction) (Acute) Lactic acidosis (Acute) Hypokalemia (Acute) Hypocalcemia (Acute) FH ischemic heart disease (Acute) father with [place] at 68 brother also has CVD Subjective: Follow-up on SBO. Patient was seen and examined. NG tube insitu, draining bilious fluid, more than 800 since morning. Has been passing some flatus but no bowel movement. Feels about the same. Denies any nausea or vomiting. Abdomen feels a little softer. Denies any fever or chills. Records of previous surgery are still pending. Vitals/I&O's: Vital Signs Temp Pulse Resp BP Pulse Ox 97.7 F L 62 16 110/73 94 07/14/17 07:37 07/14/17 07:37 07/14/17 07:37 07/14/17 07:37 07/14/17 07:37 Oxygen Delivery Method Room Air Weight: 88.451 kg Body Mass Index (BMI) 25.7 Intake and Output for Last 24 Hours 07/12/17 07/13/17 07/15/17 23:59 23:59 00:59 Intake Total 1592 / 1592 3845 / 3845 2602 / 2602 Output Total 700 / 700 2650 / 2650 1750 / 1750 Balance 892 / 892 1195 / 1195 852 / 852 General: Alert, Oriented x3, Cooperative, No apparent distress, - - NG tube in situ. HEENT: Atraumatic, PERRLA, EOMI, Normocephalic Oral: Dry Mucosa Neck: Supple Lungs: Clear to auscultation, Normal air movement, Diminished - at lung bases Cardiovascular: Regular rate, Regular Rhythm, Normal S1, Normal S2, No murmurs Abdomen: Bowel Sounds Present, Soft, Non Tender, Distended, Obese Extremities: No edema Skin: No rashes Musculoskeletal: No Tenderness to Palpation of Joints or Extremities Lymphatic: No Cervical, Supraclavicular, or Inguinal Adenopathy Neurological: Cranial nerves II-XII grossly intact Psych/Mental Status: Normal Affect, Appropriate Current Medications Enoxaparin Sodium (Lovenox) 40 mg SC DAILY@1000 [facility]O Last Admin: 07/14/17 10:16 Dose: Not Given Potassium Chloride/Sodium Chloride (Kcl 20meq In 0.45% Ns 1000ml) 1,000 mls @ 150 mls/hr IV .Q6H40M [facility] Last Admin: 07/14/17 03:38 Dose: 150 mls/hr Pantoprazole Sodium 40 mg/ (Sodium Chloride) 110 mls @ 330 mls/hr IV Q24 [facility] Last Admin: 07/14/17 10:15 Dose: 330 mls/hr Piperacillin Sod/Tazobactam Sod (Zosyn) 3.375 gm in 50 mls @ 12.5 mls/hr IV Q8 [facility] Last Admin: 07/14/17 05:44 Dose: 12.5 mls/hr Morphine Sulfate (Morphine) 4 mg IV Q3H PRN PRN PRN Reason: SEVERE PAIN (6-02/12) Last Admin: 07/14/17 10:18 Dose: 4 mg Ondansetron HCl (Zofran) 4 mg IV Q6H PRN PRN PRN Reason: NAUSEA Sodium Chloride () 5 - 30 ml IV UD PRN PRN Reason: SALINE FLUSH Last Admin: 07/14/17 05:40 Dose: 10 ml Assessment/Plan Active and Suspected Problems SBO (small bowel obstruction) (Acute) Lactic acidosis (Acute) Hypokalemia (Acute) Hypocalcemia (Acute) FH ischemic heart disease (Acute) father with [place] at 68 brother also has CVD 56-year-old male with history of multiple abdominal surgeries including appendectomy, cholecystectomy, umbilical hernia repair twice with mesh repair in the last surgery, radical prostatectomy with external beam radiation admitted with terminal pain that started in night before admission associated with nausea and vomiting and found to have small bowel obstruction. CT scan of the abdomen and pelvis shows small bowel obstruction with a transition point in the distal ileum. General surgery - DR. Jaimes following 1. Small bowel obstruction due to adhesions from previous surgeries, gently be managed conservatively, continue with NG tube suction, is controlled, IV fluid hydration and electrolyte replacement, and antibiotics. Will continue on conservative management and follow recommendations of general surgery. 2. Lactic acidosis secondary to dehydration, resolved 3. Hypokalemia, resolved, continue on IV fluids with potassium, labs in a.m. Prostate cancer status post prostatectomy and external beam radiation 4. Hypertension, controlled, not on any meds at the moment 5. Urinary incontinence since prostatectomy 6. DVT PPx - Lovenox SC Code Visit Inpatient E&M: 30118 Subs Hosp L3
--- NOTE | 2017-07-14 10:33 | PN_ITS ---
Patient Problems: Active and Suspected Problems SBO (small bowel obstruction) (Acute) Lactic acidosis (Acute) Hypokalemia (Acute) Hypocalcemia (Acute) FH ischemic heart disease (Acute) father with [place] at 68 brother also has CVD Subjective: Follow-up on SBO. Patient was seen and examined. NG tube insitu, draining bilious fluid, more than 800 since morning. Has been passing some flatus but no bowel movement. Feels about the same. Denies any nausea or vomiting. Abdomen feels a little softer. Denies any fever or chills. Records of previous surgery are still pending. Vitals/I&O's: Vital Signs Temp Pulse Resp BP Pulse Ox 97.7 F L 62 16 110/73 94 07/14/17 07:37 07/14/17 07:37 07/14/17 07:37 07/14/17 07:37 07/14/17 07:37 Oxygen Delivery Method Room Air Weight: 88.451 kg Body Mass Index (BMI) 25.7 Intake and Output for Last 24 Hours 07/12/17 07/13/17 07/15/17 23:59 23:59 00:59 Intake Total 1592 / 1592 3845 / 3845 2602 / 2602 Output Total 700 / 700 2650 / 2650 1750 / 1750 Balance 892 / 892 1195 / 1195 852 / 852 General: Alert, Oriented x3, Cooperative, No apparent distress, - - NG tube in situ. HEENT: Atraumatic, PERRLA, EOMI, Normocephalic Oral: Dry Mucosa Neck: Supple Lungs: Clear to auscultation, Normal air movement, Diminished - at lung bases Cardiovascular: Regular rate, Regular Rhythm, Normal S1, Normal S2, No murmurs Abdomen: Bowel Sounds Present, Soft, Non Tender, Distended, Obese Extremities: No edema Skin: No rashes Musculoskeletal: No Tenderness to Palpation of Joints or Extremities Lymphatic: No Cervical, Supraclavicular, or Inguinal Adenopathy Neurological: Cranial nerves II-XII grossly intact Psych/Mental Status: Normal Affect, Appropriate Current Medications Enoxaparin Sodium (Lovenox) 40 mg SC DAILY@1000 [facility] Last Admin: 07/14/17 10:16 Dose: Not Given Potassium Chloride/Sodium Chloride (Kcl 20meq In 0.45% Ns 1000ml) 1,000 mls @ 150 mls/hr IV .Q6H40M [facility] Last Admin: 07/14/17 03:38 Dose: 150 mls/hr Pantoprazole Sodium 40 mg/ (Sodium Chloride) 110 mls @ 330 mls/hr IV Q24 [facility] Last Admin: 07/14/17 10:15 Dose: 330 mls/hr Piperacillin Sod/Tazobactam Sod (Zosyn) 3.375 gm in 50 mls @ 12.5 mls/hr IV Q8 [facility] Last Admin: 07/14/17 05:44 Dose: 12.5 mls/hr Morphine Sulfate (Morphine) 4 mg IV Q3H PRN PRN PRN Reason: SEVERE PAIN (6-02/12) Last Admin: 07/14/17 10:18 Dose: 4 mg Ondansetron HCl (Zofran) 4 mg IV Q6H PRN PRN PRN Reason: NAUSEA Sodium Chloride () 5 - 30 ml IV UD PRN PRN Reason: SALINE FLUSH Last Admin: 07/14/17 05:40 Dose: 10 ml Assessment/Plan Active and Suspected Problems SBO (small bowel obstruction) (Acute) Lactic acidosis (Acute) Hypokalemia (Acute) Hypocalcemia (Acute) FH ischemic heart disease (Acute) father with [place] at 68 brother also has CVD 56-year-old male with history of multiple abdominal surgeries including appendectomy, cholecystectomy, umbilical hernia repair twice with mesh repair in the last surgery, radical prostatectomy with external beam radiation admitted with terminal pain that started in night before admission associated with nausea and vomiting and found to have small bowel obstruction. CT scan of the abdomen and pelvis shows small bowel obstruction with a transition point in the distal ileum. General surgery - DR. Jaimes following 1. Small bowel obstruction due to adhesions from previous surgeries, gently be managed conservatively, continue with NG tube suction, is controlled, IV fluid hydration and electrolyte replacement, and antibiotics. Will continue on conservative management and follow recommendations of general surgery. 2. Lactic acidosis secondary to dehydration, resolved 3. Hypokalemia, resolved, continue on IV fluids with potassium, labs in a.m. Prostate cancer status post prostatectomy and external beam radiation 4. Hypertension, controlled, not on any meds at the moment 5. Urinary incontinence since prostatectomy 6. DVT PPx - Lovenox SC Code Visit Inpatient E&M: 53050 Subs Hosp L3
--- NOTE | 2017-07-14 10:48 | PCM.PN.SRG ---
Patient Problems: Active and Suspected Problems SBO (small bowel obstruction) (Acute) Lactic acidosis (Acute) Hypokalemia (Acute) Hypocalcemia (Acute) FH ischemic heart disease (Acute) father with ID at 68 brother also has CVD Subjective: scant flatus but increased abdominal discomfort - Physical Exam General: Alert, Oriented x3 Lungs: Clear to auscultation, Normal air movement Cardiovascular: Regular rate, No murmurs Abdomen: Bowel Sounds Present, Soft, Hypoactive Bowel Sounds, Distended Vital Signs Temp Pulse Resp BP Pulse Ox 97.7 F L 62 16 110/73 94 07/14/17 07:37 07/14/17 07:37 07/14/17 07:37 07/14/17 07:37 07/14/17 07:37 Oxygen Delivery Method Room Air Weight: 88.451 kg Body Mass Index (BMI) 25.7 Intake and Output for Last 24 Hours 07/12/17 07/13/17 07/15/17 23:59 23:59 00:59 Intake Total 1592 / 1592 3845 / 3845 2602 / 2602 Output Total 700 / 700 2650 / 2650 1750 / 1750 Balance 892 / 892 1195 / 1195 852 / 852 Assessment/Plan Active and Suspected Problems SBO (small bowel obstruction) (Acute) Lactic acidosis (Acute) Hypokalemia (Acute) Hypocalcemia (Acute) FH ischemic heart disease (Acute) father with ID at 68 brother also has CVD small bowel obstruction, history of radical prostatectomy in 2014, umbilical hernia repair with mesh in 2016. will tr4y to obtain old OR records to assess mesh size Review the CT scan demonstrates a transition point in the lower right pelvis. There are no obvious hernias noted in the pelvic area. There is a question of a recurrent hernia just left of midline at the umbilicus, but there is no signs of transition or bowel incarceration that location and it may be post surgical changes. abdominal multiview demonstrated continued SBO - no significant improvement Clinically, the patient is doing well after hydration and NG tube placement. Repeat lactic acid and WBC count normal. Discussed with the patient that with nasogastric decompression, bowel rest and IV hydration. discussed with patient. Due to lack of progress of abdominal exam and persistent obstructive pattern on abdominal multiview, if patient fails to improve significantly by tomorrow, will plan for laparoscopic exploration/laparoscopic lysis of adhesions area. We will hold Lovenox for now. Patient understands the risks, benefits, possible complications of surgical procedure. We will still try to get copies of his operative report to assess the size of mesh at his umbilical repair site. KUB demonstrates the tip of the NG tube in stomach.
[2017-07-14 10:56] VITALS: BP 113/73; PULSE 65; RESP 16; TEMP 35.9; O2SAT 93
[2017-07-14 14:14] VITALS: BP 115/74; PULSE 60; RESP 16; TEMP 36.3; O2SAT 93
[2017-07-14 21:00] VITALS: BP 120/77; PULSE 66; RESP 16; TEMP 36.5; O2SAT 98
--- NOTE | 2017-07-14 23:19 | EKG12_ITS ---
Test Reason : MORNING EKG Blood Pressure : / mmHG Vent. Rate : 057 BPM Atrial Rate : 057 BPM P-R Int : 170 ms QRS Dur : 070 ms QT Int : 448 ms P-R-T Axes : 064 041 054 degrees QTc Int : 436 ms Sinus bradycardia Otherwise normal ECG When compared with ECG of 12-JUL-2017 08:53, MANUAL COMPARISON REQUIRED, DATA IS UNCONFIRMED Confirmed by OXANA PLASCENCIA ([id number]), sports editor KEEGAN MAURICIO ([id number]) on 07/25/2017 2:47:56 PM Referred By: TARAH Confirmed By:OXANA PLASCENCIA
[2017-07-15] MEDS: Piperacil/Tazobactam 3.375 GM/50 ML ML IV (05:07)
[2017-07-15 05:10] VITALS: BP 142/82; PULSE 61; RESP 16; TEMP 36.7; O2SAT 98
[2017-07-15 06:05] LABS: Absolute Lymphocyte Count 1.92 X10^3/ul (0.83-4.51); Absolute Neutrophil Count 4.7 X10^3/uL (2.0-7.7); Basophil# 0.04 X10^3/uL; Basophil% 0.5 % (0-1); Eosinophil# 0.39 X10^3/uL; Hematocrit 37.3 % (40-54); Hemoglobin 12.4 g/dl (13.0-16.5); Lymphocyte # 1.92 X10^3/ul (4.0); Lymphocyte % 24.8 % (19-41); Mean Corp Hgb Conc 33.2 g/gl (32-36); Mean Corpuscular Hgb 29.9 pg (27.0-32.0); Mean Corpuscular Volume 89.9 fL (80-94); Monocyte# 0.64 X10^3/uL; Monocyte% 8.3 % (0-10); Neutrophil # 4.73 X10^3/uL (2.7-7.7); Neutrophil % 61.3 % (47-70); Platelet Count 372 K/mm3 (150-450); RBC Distribution Width CV 14.3 % (11.6-14.6); RBC Distribution Width SD 47.2 fl (35.1-43.9); Red Blood Count 4.15 M/mm3 (4.6-6.2); White Blood Count 7.7 K/mm3 (4.4-11.0)
[2017-07-15 06:10] LABS: POSITIVE COUNT NO; POSITIVE DIFFERENTIAL NO; POSITIVE MORPHOLOGY NO
[2017-07-15 06:24] LABS: Anion Gap 11 (5-15); BUN 8 mg/dL (7-18); BUN/Creat Ratio 8.6 RATIO (10-20); Calcium,Total 8.1 mg/dL (8.5-10.1); Chloride 103 mmol/L (98-107); Creatinine, Serum 0.93 mg/dL (0.70-1.30); EST Glomerular Filtration Rate 89 mL/min (>60); Est Glom Filt Rate - Afr Amer 108 mL/min (>60); Estimated Creatinine Clearance 101.43 ml/min; Glucose 65 mg/dL (74-106); Potassium 4.4 mmol/L (3.5-5.1); Sodium Level 139 mmol/L (136-145)
--- NOTE | 2017-07-15 06:32 | RAD_ITS ---
STUDY: X-RAY - ABDOMEN/PELVIS REASON FOR EXAM: Male, 56 years old. Small bowel obstruction. Preoperative evaluation. TECHNIQUE: AP supine and upright views of the abdomen and pelvis. COMPARISON: Comparison is made with prior study dated July 14, 2017. FINDINGS: The tip of the nasogastric tube is in the fundal portion of the stomach. Gas and fecal material are seen in the colon. There is no demonstrated free abdominal air. The visualized liver, spleen and kidneys are grossly normal in size and morphology. Atherosclerotic calcification of the abdominal aorta. Normal visualized osseous structures. RAD/Abd Inc Decub and/or Erect IMPRESSION: Fecal material and gas are seen in the colon. Electronically Signed: Jordon Olsen MD at 10:44 EDT Tel [phone], Service support ,
[2017-07-15 08:26] VITALS: BP 118/79; PULSE 57; RESP 18; TEMP 36.8; O2SAT 98
--- NOTE | 2017-07-15 13:00 | PCM.PROGNOTE ---
Patient Problems: Active and Suspected Problems SBO (small bowel obstruction) (Acute) Lactic acidosis (Acute) Hypokalemia (Acute) Hypocalcemia (Acute) FH ischemic heart disease (Acute) father with [place] at 68 brother also has CVD Subjective: 56-year-old male admitted to the hospital on 07/12/2017 with small bowel obstruction. Has been treated conservatively with an NG tube, hydration and bowel rest. Being followed by Dr. Wheat from general surgery. States he is passing more flatus today but has still not had a bowel movement. He has been ambulating in the halls. He denies abdominal pain and also denies nausea. He is afebrile and vital signs are stable. He is 98% saturated on room air. NG output on 07/14/2017 was 2000 cc. - Physical Exam General: Alert, Oriented x3, Cooperative, No apparent distress Oral: Moist Mucosa Neck: Supple, Trachea Midline Lungs: Clear to auscultation Cardiovascular: Regular rate, Regular Rhythm, Normal S1, Normal S2, No murmurs, No Gallop Abdomen: Bowel Sounds Present, Soft, Non Tender, Non-Distended Extremities: No edema Skin: No rashes, No breakdown Neurological: Cranial nerves II-XII grossly intact, Neuro grossly intact Psych/Mental Status: Normal Affect, Appropriate Vital Signs Temp Pulse Resp BP Pulse Ox 98.2 F 57 L 18 118/79 98 07/15/17 08:26 07/15/17 08:26 07/15/17 08:26 07/15/17 08:26 07/15/17 08:26 Oxygen Delivery Method Room Air Weight: 195 lb 0.017 oz Body Mass Index (BMI) 25.7 Intake and Output for Last 24 Hours 07/13/17 07/14/17 07/15/17 22:59 23:59 23:59 Intake Total 1989 Output Total 1400 / 1400 Balance 590 / 590 Laboratory Tests Past 24 Hrs 07/15/17 07/15/17 05:40 05:40 WBC 7.7 RBC 4.15 L Hgb 12.4 L Hct 37.3 L MCV 89.9 MCH 29.9 MCHC 33.2 RDW 14.3 RDW Differential 47.2 H Plt Count 372 MPV 9.0 Immature Gran % (Auto) 0.100 Neut % (Auto) 61.3 Lymph % (Auto) 24.8 [place] % (Auto) 8.3 Eos % (Auto) 5.0 Baso % (Auto) 0.5 Absolute Neuts (auto) 4.7 Absolute Lymphs (auto) 1.92 Total Counted Not Reportable Sodium 139 Potassium 4.4 Chloride 103 Carbon Dioxide 25.0 Anion Gap 11 BUN 8 Creatinine 0.93 Estim Creat Clear Calc 101.43 Est GFR (MDRD) Af Amer 108 Est GFR (MDRD) Non-Af 89 BUN/Creatinine Ratio 8.6 L Glucose 65 L Calcium 8.1 L Assessment/Plan Active and Suspected Problems SBO (small bowel obstruction) (Acute) Lactic acidosis (Acute) Hypokalemia (Acute) Hypocalcemia (Acute) FH ischemic heart disease (Acute) father with [place] at 68 brother also has CVD impressions 1. SBO - suspect adhesions. Increased Flatus today 2. lactic acidosis due to dehydration/N/V - resolved with fluids 3. hx of stage 3 prostate cancer diagnosed in 2013 and treated with prostatectomy and external beam radiation 4. GERD 5. History of hypertension 6. Hyperlipidemia 7. History of partial colon resection for a large benign mass 8. Nicotine dependence 9. Hypokalemia 10. Hypocalcemia 11. urinary incontinence since prostatectomy Admitted to [facility] with a diagnosis of SBO. discontinue the antibiotics. No fevers, normal WBC count continue IV fluids Per nursing - Dr. Jaimes's planning to DC the NG tube this afternoon and start clears. If he does not tolerate this the plan is for surgery tomorrow Lovenox on hold per Dr. Jaimes Code Visit Inpatient E&M: 57315 Subs Hosp L2
[2017-07-15 13:26] VITALS: BP 107/79; PULSE 65; RESP 18; TEMP 36.7; O2SAT 98
--- NOTE | 2017-07-15 16:17 | PN.SURG_ITS ---
Patient Problems: Active and Suspected Problems SBO (small bowel obstruction) (Acute) Lactic acidosis (Acute) Hypokalemia (Acute) Hypocalcemia (Acute) FH ischemic heart disease (Acute) father with [place] at 68 brother also has CVD Subjective: passing significant flatus, less abdominal distention and less abdominal discomfort today - Physical Exam General: Alert, Oriented x3 Lungs: Clear to auscultation, Normal air movement Cardiovascular: Regular rate, Regular Rhythm Abdomen: Bowel Sounds Present, Soft, Distended - less distended Vital Signs Temp Pulse Resp BP Pulse Ox 98.1 F 65 18 107/79 98 07/15/17 13:26 07/15/17 13:26 07/15/17 13:26 07/15/17 13:26 07/15/17 13:26 Oxygen Delivery Method Room Air Weight: 88.451 kg Body Mass Index (BMI) 25.7 Intake and Output for Last 24 Hours 07/13/17 07/14/17 07/15/17 22:59 23:59 23:59 Intake Total 1989 Output Total 1500 / 1500 Balance 490 / 490 Laboratory Tests Past 24 Hrs 07/15/17 07/15/17 05:40 05:40 WBC 7.7 RBC 4.15 L Hgb 12.4 L Hct 37.3 L MCV 89.9 MCH 29.9 MCHC 33.2 RDW 14.3 RDW Differential 47.2 H Plt Count 372 MPV 9.0 Immature Gran % (Auto) 0.100 Neut % (Auto) 61.3 Lymph % (Auto) 24.8 [place] % (Auto) 8.3 Eos % (Auto) 5.0 Baso % (Auto) 0.5 Absolute Neuts (auto) 4.7 Absolute Lymphs (auto) 1.92 Total Counted Not Reportable Sodium 139 Potassium 4.4 Chloride 103 Carbon Dioxide 25.0 Anion Gap 11 BUN 8 Creatinine 0.93 Estim Creat Clear Calc 101.43 Est GFR (MDRD) Af Amer 108 Est GFR (MDRD) Non-Af 89 BUN/Creatinine Ratio 8.6 L Glucose 65 L Calcium 8.1 L Assessment/Plan Active and Suspected Problems SBO (small bowel obstruction) (Acute) Lactic acidosis (Acute) Hypokalemia (Acute) Hypocalcemia (Acute) FH ischemic heart disease (Acute) father with [place] at 68 brother also has CVD small bowel obstruction, history of radical prostatectomy in 2014, umbilical hernia repair with mesh in 2016. will try to obtain old OR records to assess mesh size Review the CT scan demonstrates a transition point in the lower right pelvis. There are no obvious hernias noted in the pelvic area. There is a question of a recurrent hernia just left of midline at the umbilicus, but there is no signs of transition or bowel incarceration that location and it may be post surgical changes. abdominal multiview demonstrated improved bowel gas pattern with some distended small bowel but significant air now within the colon. The patient states that he is passing flatus but not moving his bowels will remove NG tube and trial clear liquids. cancel surgery for today. We will hold Lovenox for now. if patient fails to liquid trial. We'll then plan for surgery. Patient understands the risks, benefits, possible complications of surgical procedure. We will still try to get copies of his operative report to assess the size of mesh at his umbilical repair site.
[2017-07-15 19:30] VITALS: BP 113/72; PULSE 62; RESP 18; TEMP 36.9; O2SAT 96
[2017-07-16 01:30] VITALS: BP 112/76; PULSE 63; RESP 18; TEMP 36.9; O2SAT 95
--- NOTE | 2017-07-16 05:40 | NURSING ---
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
--- NOTE | 2017-07-16 06:00 | RAD_ITS ---
STUDY: X-RAY - ABDOMEN/PELVIS REASON FOR EXAM: Male, 56 years old. Small bowel obstruction. TECHNIQUE: AP supine and upright views of the abdomen and pelvis. COMPARISON: Comparison is made with prior study dated July 15, 2017. FINDINGS: Stable elevation of the right hemidiaphragm. The previously seen orogastric tube has been removed. A moderate amount of fecal material is seen throughout the colon. Slightly dilated small bowel loop is seen in the left upper quadrant. There is no demonstrated free abdominal air. The visualized liver, spleen and kidneys are grossly normal in size and morphology. Normal soft tissue structures. Normal visualized osseous structures. RAD/Abd Inc Decub and/or Erect IMPRESSION: Gas and fecal material are seen throughout the colon. Mildly dilated small bowel loop in the left upper quadrant. Electronically Signed: Jordon Olsen MD at 9:12 EDT Tel [phone], Service support ,
--- NOTE | 2017-07-16 06:12 | PCM.DC ---
- Discharge Diagnoses Current Active Problems: Current Active and Chronic Problems SBO (small bowel obstruction) (Acute) Depression (Chronic) Hx of malignant neoplasm of prostate (Chronic) stage III diagnosed in 2013 and treated with Radiation and prostatectomy Lactic acidosis (Acute) Hypokalemia (Acute) Hypocalcemia (Acute) HLD (hyperlipidemia) (Chronic) Tobacco dependence due to cigarettes (Chronic) 1 and 1/2 PPD GERD (gastroesophageal reflux disease) (Chronic) Inflammatory arthritis (Chronic) takes MTX and it is managed by PCP ischemic heart disease (Acute) father with [place] at 68 brother also has CVD You will use the following diet at home:: Clear liquid - x 5 days then slowly advance diet Discharge Activity: Return to Normal Activity Allergies/Adverse Reactions: Allergies acetaminophen [From Vicodin] Allergy (Verified 07/12/17 12:34) Vomiting hydrocodone [From Vicodin] Allergy (Verified 07/12/17 12:34) Vomiting Medications to take at Discharge Atorvastatin Calcium 40 mg PO DAILY 07/12/17 Buspirone HCl 7.5 mg PO TID 07/12/17 Cholecalciferol (Vitamin D3) [Vitamin D3] 5,000 unit PO DAILY 07/12/17 Citalopram Hydrobromide [Citalopram HBr] 40 mg PO DAILY 07/12/17 Cyanocobalamin (Vitamin B-12) [Vitamin B-12] 2,500 mcg SL DAILY 07/12/17 Meloxicam [Mobic] 15 mg PO DAILY 07/12/17 Mirtazapine [Remeron] 45 mg PO QHS PRN 07/12/17 Pioneer-3 Acid Ethyl Esters [Lovaza] 1 gm PO BID 07/12/17 Pantoprazole Sodium [Protonix] 40 mg PO DAILY 07/12/17 Pedi Multivit 158/Iron/Vit K1 [Cerovite Jr Tablet Chew] 1 each PO DAILY 07/12/17 Potassium Chloride 10 meq PO BID 07/12/17 Primary Care Physician: Hermann Hill,Out of [Primary Care Provider] - Please Follow Up With: Juan Francisco Jaimes MD When: 7 days
[2017-07-16 07:30] VITALS: BP 121/80; PULSE 62; RESP 16; TEMP 36.7; O2SAT 96
--- NOTE | 2017-07-16 09:15 | NURSING ---
Request for information from [facility] was sent- have not received information yet.
--- NOTE | 2017-07-16 11:13 | PCM.DC.SUM ---
Discharge Date and Diagnosis Date of Admission: 07/12/17 Date of Discharge: 07/16/17 - Primary Discharge Diagnosis Active and Suspected Problems SBO (small bowel obstruction) (Acute) Lactic acidosis (Acute) - resolved with hydration Dehydration due to vomiting Hypokalemia (Acute) Hypocalcemia (Acute) UTI due to Klebsiella pneumoniae - Secondary Discharge Diagnosis Chronic Problems Depression (Chronic) Hx of malignant neoplasm of prostate (Chronic) stage III diagnosed in 2014 and treated with Radiation and prostatectomy HLD (hyperlipidemia) (Chronic) Tobacco dependence due to cigarettes (Chronic) 1 and 1/2 PPD GERD (gastroesophageal reflux disease) (Chronic) Inflammatory arthritis (Chronic) takes MTX and it is managed by PCP ischemic heart disease father with [place] at 68 brother also has CVD HTN Urinary Incontinence since prostatectomy HX of a partial colectomy for large benign tumor Hospital Course and Treatment Imaging Results: 07/16/17 06:00 KUB [Abd Inc Decub and/or Erect] [RAD] Urgent Clinical Impression(s) from Imaging Studies Abdomen/Pelvis CTA 07/12/17 08:35 IMPRESSION: Findings in keeping with small bowel obstruction. The transition point is in the distal ileum. Prior bilateral inguinal hernias repair. Electronically Signed: Jordon Olsen MD at 10:33 EST Tel [phone], Service support , Chest X-Ray 07/12/17 08:36 IMPRESSION: No acute abnormality is seen. Electronically Signed: Jordon Olsen MD at 10:10 EST Tel [phone], Service support , KUB X-Ray 07/12/17 10:52 IMPRESSION: The tip of the nasogastric tube is at the level of the gastroesophageal junction. Electronically Signed: Jordon Olsen MD at 11:37 EST Tel [phone], Service support , Chest X-Ray 07/12/17 11:10 IMPRESSION: The tip of the nasogastric tube is at the level of the gastroesophageal junction. Electronically Signed: Jordon Olsen MD at 11:34 EST Tel [phone], Service support , KUB X-Ray 07/12/17 11:32 IMPRESSION: The tip of the nasogastric tube is in the body of the stomach. Electronically Signed: Jordon Olsen MD at 12:22 EST Tel [phone], Service support , Abdomen X-Ray 07/13/17 06:00 IMPRESSION: Small bowel obstruction. No free air. NG tube tip in the stomach. Electronically Signed: Andrew العراقي DO at 6:42 EST , Service support , Abdomen X-Ray 07/14/17 05:00 IMPRESSION: Small bowel obstruction. No significant change. NG tube in the stomach. Electronically Signed: Andrew العراقي DO at 6:26 EDT , Service support , Abdomen X-Ray 07/15/17 06:32 IMPRESSION: Fecal material and gas are seen in the colon. Electronically Signed: Jordon Olsen MD at 10:44 EDT Tel [phone], Service support , Abdomen X-Ray 07/16/17 06:00 IMPRESSION: Gas and fecal material are seen throughout the colon. Mildly dilated small bowel loop in the left upper quadrant. Electronically Signed: Jordon Olsen MD at 9:12 EDT Tel [phone], Service support , Microbiology 07/12/17 10:15 Blood Culture (Wb) - Left Hand Blood Culture - Preliminary No growth in 48 hours. 07/12/17 10:15 Blood Culture (Wb) - Anticubital Right Blood Culture - Preliminary No growth in 48 hours. 07/12/17 08:40 Urine, Catheterized Urine Culture - Final Klebsiella pneumoniae sp pneum Dr. Juan Francisco Jaimes-[facility] general surgery Operations: None Procedures: None Summary of Care Provided: The patient is a 56 year old M with a hx of stage III prostatic CA, HLD, depression/anxiety, tobacco dependence, inflammatory arthritis treated by his PCP with methotrexate, GERD and asthma as a child who presented to the ER at [facility] on 07/12/17 c/o N/V/Abdominal pain and distension that started the preceding night after eating pizza rolls. He has never had a problem with this food in the past. He had no sick contacts. He has a hx of multiple abdominal/pelvic surgeries that include cholecystectomy, partial colon resection for a large mass which was benign in 2013, appendectomy, prostatectomy, 2 inguinal hernia repairs. He denied fever, chills, night sweats. Vital signs at presentation to the emergency room were temperature 97.6, pulse rate 75, blood pressure 129/92, respiratory rate 18 and he was 100% saturated on room air. Remarkable lab included an elevated white blood cell count at 19.5 with 85% neutrophils. Platelet count was 501,000. Potassium was low at 3.3 and the serum bicarb was 17 with an anion gap of 12. Random blood glucose is elevated at 160 and the patient denies any history of diabetes mellitus. Calcium was 7.0 and the serum albumin was 2.6. LFTs were within normal limits. UA was positive for ketones and glucose. There were 5-10 white blood cells and 0-5 squamous epithelial cells in the urine with rare bacteria. He has had a chronic problem with urinary incontinence since the prostatectomy and wears a depends. He denied dysuria and also denied any change in frequency of urination. He was admitted to the hospital with a diagnosis of small bowel obstruction. Dr. Jaimes was consulted. NG tube was placed and position was verified with a KUB. The NG tube was placed to low intermittent suction and immediately had 500 cc of green/bilious return. He was managed conservatively with bowel rest, decompression, pain medication and he was encouraged to ambulate. He was started on Zosyn at admission due to the increased WBC count and the elevated Lactic acid. Blood cultures were obtained and they were negative. He had no fevers or shaking chills during his hospital stay. The urine culture grew Klebsiella pneumoniae and it was sensitive to Zosyn. Abdominal pain and distention resolved with decompression with an NG tube. Zosyn was stopped on 07/14/2017 and the patient remained afebrile. The white blood cell count on 07/15/2017 was 7.7 with a normal differential. He had no urinary Sx. The NG tube was discontinued on 07/15/17 and he was started on clear liquids. The following morning he denied abdominal pain and had no nausea or vomiting. He had not had a BM but, was passing flatus. He was discharged home with instructions to continue the clear liquids for 3-5 days and then advance as tolerated to low residue. He will follow up with Dr. Jaimes in the office in 1 week. If he has abdominal distension, pain, N/V, fevers/chills he will return to the ER. It is unclear to me whether he had a UTI or if he is colonized. He was afebrile throughout his hospital stay and asymptomatic. He received 4 days of Zosyn. He was not discharged on antibiotics. Discharge Activity: Return to Normal Activity Home Medications: Medications to take at Discharge Atorvastatin Calcium 40 mg PO DAILY 07/12/17 Buspirone HCl 7.5 mg PO TID 07/12/17 Cholecalciferol (Vitamin D3) [Vitamin D3] 5,000 unit PO DAILY 07/12/17 Citalopram Hydrobromide [Citalopram HBr] 40 mg PO DAILY 07/12/17 Cyanocobalamin (Vitamin B-12) [Vitamin B-12] 2,500 mcg SL DAILY 07/12/17 Meloxicam [Mobic] 15 mg PO DAILY 07/12/17 Mirtazapine [Remeron] 45 mg PO QHS PRN 07/12/17 [place]-3 Acid Ethyl Esters [Lovaza] 1 gm PO BID 07/12/17 Pantoprazole Sodium [Protonix] 40 mg PO DAILY 07/12/17 Pedi Multivit 158/Iron/Vit K1 [Cerovite Jr Tablet Chew] 1 each PO DAILY 07/12/17 Potassium Chloride 10 meq PO BID 07/12/17 Primary Care Physician: Hermann Hill,Out of [Primary Care Provider] - Please Follow Up With: Juan Francisco Jaimes MD When: 7 days Disposition: Home Minutes spent on discharge:: 30 Patient Condition:: Good Meaningful Use Info Meaningful Use Diagnoses (Choose all that apply): None applicable Code Visit Inpatient E&M: 65628 Disch Hosp
--- NOTE | 2017-07-16 11:18 | DS.PCM_ITS ---
Discharge Date and Diagnosis Date of Admission: 07/12/17 Date of Discharge: 07/16/17 - Primary Discharge Diagnosis Active and Suspected Problems SBO (small bowel obstruction) (Acute) Lactic acidosis (Acute) - resolved with hydration Dehydration due to vomiting Hypokalemia (Acute) Hypocalcemia (Acute) UTI due to Klebsiella pneumoniae - Secondary Discharge Diagnosis Chronic Problems Depression (Chronic) Hx of malignant neoplasm of prostate (Chronic) stage III diagnosed in 2014 and treated with Radiation and prostatectomy HLD (hyperlipidemia) (Chronic) Tobacco dependence due to cigarettes (Chronic) 1 and 1/2 PPD GERD (gastroesophageal reflux disease) (Chronic) Inflammatory arthritis (Chronic) takes MTX and it is managed by PCP ischemic heart disease father with [place] at 68 brother also has CVD HTN Urinary Incontinence since prostatectomy HX of a partial colectomy for large benign tumor Hospital Course and Treatment Imaging Results: 07/16/17 06:00 KUB [Abd Inc Decub and/or Erect] [RAD] Urgent Clinical Impression(s) from Imaging Studies Abdomen/Pelvis CTA 07/12/17 08:35 IMPRESSION: Findings in keeping with small bowel obstruction. The transition point is in the distal ileum. Prior bilateral inguinal hernias repair. Electronically Signed: Jordon Olsen MD at 10:33 EST Tel [phone], Service support , Chest X-Ray 07/12/17 08:36 IMPRESSION: No acute abnormality is seen. Electronically Signed: Jordon Olsen MD at 10:10 EST Tel [phone], Service support , KUB X-Ray 07/12/17 10:52 IMPRESSION: The tip of the nasogastric tube is at the level of the gastroesophageal junction. Electronically Signed: Jordon Olsen MD at 11:37 EST Tel [phone], Service support , Chest X-Ray 07/12/17 11:10 IMPRESSION: The tip of the nasogastric tube is at the level of the gastroesophageal junction. Electronically Signed: Jordon Olsen MD at 11:34 EST Tel [phone], Service support , KUB X-Ray 07/12/17 11:32 IMPRESSION: The tip of the nasogastric tube is in the body of the stomach. Electronically Signed: Jordon Olsen MD at 12:22 EST Tel [phone], Service support , Abdomen X-Ray 07/13/17 06:00 IMPRESSION: Small bowel obstruction. No free air. NG tube tip in the stomach. Electronically Signed: Andrew العراقي DO at 6:42 EST , Service support , Abdomen X-Ray 07/14/17 05:00 IMPRESSION: Small bowel obstruction. No significant change. NG tube in the stomach. Electronically Signed: Andrew العراقي DO at 6:26 EDT , Service support , Abdomen X-Ray 07/15/17 06:32 IMPRESSION: Fecal material and gas are seen in the colon. Electronically Signed: Jordon Olsen MD at 10:44 EDT Tel [phone], Service support , Abdomen X-Ray 07/16/17 06:00 IMPRESSION: Gas and fecal material are seen throughout the colon. Mildly dilated small bowel loop in the left upper quadrant. Electronically Signed: Jordon Olsen MD at 9:12 EDT Tel [phone], Service support , Microbiology 07/12/17 10:15 Blood Culture (Wb) - Left Hand Blood Culture - Preliminary No growth in 48 hours. 07/12/17 10:15 Blood Culture (Wb) - Anticubital Right Blood Culture - Preliminary No growth in 48 hours. 07/12/17 08:40 Urine, Catheterized Urine Culture - Final Klebsiella pneumoniae sp pneum Dr. Juan Francisco Jaimes-[facility] general surgery Operations: None Procedures: None Summary of Care Provided: The patient is a 56 year old M with a hx of stage III prostatic CA, HLD, depression/anxiety, tobacco dependence, inflammatory arthritis treated by his PCP with methotrexate, GERD and asthma as a child who presented to the ER at [facility] on 07/12/17 c/o N/V/Abdominal pain and distension that started the preceding night after eating pizza rolls. He has never had a problem with this food in the past. He had no sick contacts. He has a hx of multiple abdominal/pelvic surgeries that include cholecystectomy, partial colon resection for a large mass which was benign in 2013, appendectomy, prostatectomy, 2 inguinal hernia repairs. He denied fever, chills, night sweats. Vital signs at presentation to the emergency room were temperature 97.6, pulse rate 75, blood pressure 129/92, respiratory rate 18 and he was 100% saturated on room air. Remarkable lab included an elevated white blood cell count at 19.5 with 85% neutrophils. Platelet count was 501,000. Potassium was low at 3.3 and the serum bicarb was 17 with an anion gap of 12. Random blood glucose is elevated at 160 and the patient denies any history of diabetes mellitus. Calcium was 7.0 and the serum albumin was 2.6. LFTs were within normal limits. UA was positive for ketones and glucose. There were 5-10 white blood cells and 0-5 squamous epithelial cells in the urine with rare bacteria. He has had a chronic problem with urinary incontinence since the prostatectomy and wears a depends. He denied dysuria and also denied any change in frequency of urination. He was admitted to the hospital with a diagnosis of small bowel obstruction. Dr. Jaimes was consulted. NG tube was placed and position was verified with a KUB. The NG tube was placed to low intermittent suction and immediately had 500 cc of green/ bilious return. He was managed conservatively with bowel rest, decompression, pain medication and he was encouraged to ambulate. He was started on Zosyn at admission due to the increased WBC count and the elevated Lactic acid. Blood cultures were obtained and they were negative. He had no fevers or shaking chills during his hospital stay. The urine culture grew Klebsiella pneumoniae and it was sensitive to Zosyn. Abdominal pain and distention resolved with decompression with an NG tube. Zosyn was stopped on 07/14/2017 and the patient remained afebrile. The white blood cell count on 07/15/2017 was 7.7 with a normal differential. He had no urinary Sx. The NG tube was discontinued on 07/15 and he was started on clear liquids. The following morning he denied abdominal pain and had no nausea or vomiting. He had not had a BM but, was passing flatus. He was discharged home with instructions to continue the clear liquids for 3-5 days and then advance as tolerated to low residue. He will follow up with Dr. Jaimes in the office in 1 week. If he has abdominal distension, pain, N/V, fevers/chills he will return to the ER. It is unclear to me whether he had a UTI or if he is colonized. He was afebrile throughout his hospital stay and asymptomatic. He received 4 days of Zosyn. He was not discharged on antibiotics. Discharge Activity: Return to Normal Activity Home Medications: Medications to take at Discharge Atorvastatin Calcium 40 mg PO DAILY 07/12/17 Buspirone HCl 7.5 mg PO TID 07/12/17 Cholecalciferol (Vitamin D3) [Vitamin D3] 5,000 unit PO DAILY 07/12/17 Citalopram Hydrobromide [Citalopram HBr] 40 mg PO DAILY 07/12/17 Cyanocobalamin (Vitamin B-12) [Vitamin B-12] 2,500 mcg SL DAILY 07/12/17 Meloxicam [Mobic] 15 mg PO DAILY 07/12/17 Mirtazapine [Remeron] 45 mg PO QHS PRN 07/12/17 [place]-3 Acid Ethyl Esters [Lovaza] 1 gm PO BID 07/12/17 Pantoprazole Sodium [Protonix] 40 mg PO DAILY 07/12/17 Pedi Multivit 158/Iron/Vit K1 [Cerovite Jr Tablet Chew] 1 each PO DAILY Potassium Chloride 10 meq PO BID 07/12/17 Primary Care Physician: Hermann Hill,Out of [Primary Care Provider] - Please Follow Up With: Juan Francisco Jaimes MD When: 7 days Disposition: Home Minutes spent on discharge:: 30 Patient Condition:: Good Meaningful Use Info Meaningful Use Diagnoses (Choose all that apply): None applicable Code Visit Inpatient E&M: 34167 Disch Hosp
[2017-07-16 14:04] VITALS: BP 125/68; PULSE 73; RESP 16; TEMP 36.7; O2SAT 97
== END 2017-07-16 14:15 | disposition home or self-care (01) | DRG 389 ==
LOC: ED 11:34 → MS2 12:02
PROVIDERS: Internal Medicine; Surgery; Admitting Provider Internal Medicine; Emergency Provider Emergency Medicine; Visit Provider Internal Medicine
DX: K56.50 Intestinal adhesions [bands], unspecified as to partial versus complete obstruction (principal); E87.2 Acidosis; E83.51 Hypocalcemia; N39.0 Urinary tract infection, site not specified; R32 Unspecified urinary incontinence; E87.6 Hypokalemia; F17.210 Nicotine dependence, cigarettes, uncomplicated; Z90.49 Acquired absence of other specified parts of digestive tract; E78.5 Hyperlipidemia, unspecified; K21.0 Gastro-esophageal reflux disease with esophagitis; Z85.46 Personal history of malignant neoplasm of prostate; Z92.3 Personal history of irradiation; E86.0 Dehydration; B96.1 Klebsiella pneumoniae [K. pneumoniae] as the cause of diseases classified elsewhere; F32.9 Major depressive disorder, single episode, unspecified; I10 Essential (primary) hypertension; M06.4 Inflammatory polyarthropathy; Z90.79 Acquired absence of other genital organ(s); Z82.49 Family history of ischemic heart disease and other diseases of the circulatory system
CPT/HCPCS: 36415; 71045; 71046; 74018; 74019; 74174; 80048; 80053; 81001; 83036; 83605; 83690; 83735; 84100; 84484; 85025; 85652; 86140; 87040; 87077; 87086; 87088; 87186; 93005; 99285; 99406; J7030; Q9967; A4216; J0610; J2405